=== PATIENT | female | born 1965 | race Caucasian/White ===

== ENCOUNTER → 2020-01-13 | Outpatient (CLI) | payer SELFPAY | END | disposition home or self-care (01) | LOC: LAB SHORT 11:00 | DX: Z48.817 Encounter for surgical aftercare following surgery on the skin and subcutaneous tissue (principal); L08.9 Local infection of the skin and subcutaneous tissue, unspecified; L23.9 Allergic contact dermatitis, unspecified cause | CPT/HCPCS: 87070; 87205 ==